=== PATIENT | male | born 1970 | race Caucasian/White ===

== ENCOUNTER 2017-01-20 15:45 | Emergency (ER) | payer OTHER ==
--- NOTE | 2017-01-20 16:15 | EDM.PDOC ---
ED HPI GENERAL MEDICAL PROBLEM - General Chief Complaint: Back Pain or Injury Stated Complaint: BACK PAIN Time Seen by Provider: 01/20/17 16:10 - History of Present Illness INITIAL COMMENTS - FREE TEXT/NARRATIVE: HISTORY AND PHYSICAL: History of present illness: Patient 46-year-old white male presents status post fall which injured his lower back he denies any other trauma or concerns or no numbness no weakness no incontinence or retention of bowel or bladder he denies any head or neck pain or trauma states this was strictly a mechanical fall there is no chest pains or palpitations other concern Review of systems: As per history of present illness and below otherwise all systems reviewed and negative. Past medical history: As per history of present illness and as reviewed below otherwise noncontributory. Surgical history: As per history of present illness and as reviewed below otherwise noncontributory. Social history: No reported history of drug or alcohol abuse. Family history: As per history of present illness and as reviewed below otherwise noncontributory. Physical exam: HEENT: Atraumatic, normocephalic, pupils reactive, negative for conjunctival pallor or scleral icterus, mucous membranes moist, throat clear, neck supple, nontender, trachea midline. Lungs: Clear to auscultation, breath sounds equal bilaterally, chest nontender. Heart: S1S2, regular, negative for clicks, rubs, or JVD. Abdomen: Soft, nondistended, nontender. Negative for masses or hepatosplenomegaly. Negative for costovertebral tenderness. Pelvis: Stable nontender. Genitourinary: Deferred. Rectal: Deferred. Extremities: Atraumatic, negative for cords or calf pain. Neurovascular unremarkable. Neuro: Awake, alert, oriented. Cranial nerves II through XII unremarkable. Cerebellum unremarkable. Motor and sensory unremarkable throughout. Exam nonfocal. Back: Patient has some oozing in the ureter to region of the lumbar spine right greater than left there is no vertebral body or midline tenderness patient is able stand on his toes back on his heels deep tendon reflexes motor and sensory are normal Diagnostics: X-ray lumbar spine x-ray coccyx/sacrum UA Therapeutics: None Impression: Along observation status post fall #2 lumbosacral contusion/strain Definitive disposition and diagnosis as appropriate pending reevaluation and review of above. - Related Data Allergies Allergy/AdvReac Type Severity Reaction Status Date / Time No Known Allergies Allergy Verified 01/20/17 16:13 Home Meds: Home Meds . [No Known Home Meds] 01/20/17 [History] ED ROS GENERAL - Review of Systems Review Of Systems: ROS reveals no pertinent complaints other than HPI. ED EXAM, GENERAL - Physical Exam Exam: See Below Course - Vital Signs Last Recorded V/S: Last Vital Signs Temp 37.1 C 01/20/17 16:13 Pulse 96 01/20/17 16:13 Resp 20 01/20/17 16:13 BP 136/77 01/20/17 16:13 Pulse Ox 96 01/20/17 16:13 - Orders/Labs/Meds Orders: Active Orders 24 hr Category Date Time Status Lumbar Spine 2 or 3V [CR] Stat Exams 01/20/17 16:11 Taken Sacrum Coccyx Min 2V [CR] Stat Exams 01/20/17 16:11 Taken Labs: Laboratory Tests 01/20/17 Range/Units 16:12 Urine Color YELLOW Urine Appearance CLEAR Urine pH 5.5 (5.0-8.0) Ur Specific Odd 1.020 (1.001-1.035) Urine Protein NEGATIVE (NEGATIVE) mg/dL Urine Glucose (UA) >=1000 (NEGATIVE) mg/dL Urine Ketones TRACE H (NEGATIVE) mg/dL Urine Occult Blood NEGATIVE (NEGATIVE) Urine Nitrite NEGATIVE (NEGATIVE) Urine Bilirubin NEGATIVE (NEGATIVE) Urine Urobilinogen 0.2 (<2.0) EU/dL Ur Leukocyte Esterase NEGATIVE (NEGATIVE) Urine RBC 0-1 (0-2/HPF) Urine WBC 0-1 (0-5/HPF) Ur Epithelial Cells RARE (NONE-FEW) Urine Bacteria RARE (NEGATIVE) Urine Mucus LIGHT (NONE-MOD) Departure - Departure Time of Disposition: 17:10 Disposition: Home, Self-Care 01 Condition: good Clinical Impression: Lumbar strain, Contusion, Fall Forms: ED Department Discharge Additional Instructions: The following information is given to patients seen in the emergency department who are being discharged to home. This information is to outline your options for follow-up care. We provide all patients seen in our emergency department with a follow-up referral. The need for follow-up, as well as the timing and circumstances, are variable depending upon the specifics of your emergency department visit. If you don't have a primary care physician on staff, we will provide you with a referral. We always advise you to contact your personal physician following an emergency department visit to inform them of the circumstance of the visit and for follow-up with them and/or the need for any referrals to a consulting specialist. The emergency department will also refer you to a specialist when appropriate. This referral assures that you have the opportunity for followup care with a specialist. All of these measure are taken in an effort to provide you with optimal care, which includes your followup. Under all circumstances we always encourage you to contact your private physician who remains a resource for coordinating your care. When calling for followup care, please make the office aware that this follow-up is from your recent emergency room visit. If for any reason you are refused follow-up, please contact the [facility] emergency department at and asked to speak to the emergency department charge nurse. Followup primary medical doctor Bobby Shepard as directed return as needed as discussed - My Orders Last 24 Hours: My Active Orders 01/20/17 16:11 Lumbar Spine 2 or 3V [CR] Stat Sacrum Coccyx Min 2V [CR] Stat - Assessment/Plan Last 24 Hours: My Active Orders 01/20/17 16:11 Lumbar Spine 2 or 3V [CR] Stat Sacrum Coccyx Min 2V [CR] Stat
[2017-01-20 17:47] VITALS: BP 135/70
--- NOTE | 2017-01-23 16:24 | CR ---
EXAM DATE: 01/20/17 PATIENT'S AGE: 46 Patient: RICK POST Facility: [place], [place] Site . Site : 1970 Study: XRay Spine Lumbar [id number]/31/2017 4:42:48 PM Ordering Physician: Pat Yo Final Report: Lumbar spine 3 VIEWS INDICATION: Injury. IMPRESSION: Mild discogenic narrowing L5-S1. No fracture, spondylolysis or spondylolisthesis. Sacroiliac joints appear normal. Satisfactory alignment. Dictated by Charles Clements MD @ Jan 20 2017 4:53PM (Electronic Signature) Report Signed by Proxy and Original Signed Document filed in the Medical Record. MTDD
--- NOTE | 2017-01-23 16:26 | CR ---
EXAM DATE: 01/20/17 PATIENT'S AGE: 46 Patient: RICK POST Facility: [place], [place] Site . Site : 1970 Study: XRay Spine sac/jabari [id number]/31/2017 4:43:12 PM Ordering Physician: Pat Yo Final Report: Sacrum and coccyx 3 VIEWS INDICATION: Injury. IMPRESSION: No visualized fracture. Alignments anatomic. Joint spaces unremarkable. Dictated by Charles Clements MD @ Jan 20 2017 4:53PM (Electronic Signature) Report Signed by Proxy and Original Signed Document filed in the Medical Record. MTDD
== END 2017-01-20 17:41 | disposition home or self-care (01) ==
LOC: MW.ED 15:45
DX: S39.012A Strain of muscle, fascia and tendon of lower back, initial encounter (principal); W19.XXXA Unspecified fall, initial encounter
CPT/HCPCS: 72100; 72100-26; 72220; 72220-26; 81001; 99282; 99283